=== PATIENT | female | born 2000 | race Hispanic/Latino ===

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

== ENCOUNTER 2022-03-24 18:56 | Emergency (ER) | payer SELFPAY ==
--- NOTE | 2022-03-24 19:04 | ED.EXTPRO ---
HPI - Extremity Problem General Chief complaint: Extremity Problem,Nontraumatic Stated complaint: left thumb/3rd finger infected Time Seen by Provider: 03/24/22 18:59 Source: patient Mode of arrival: ambulatory Limitations: no limitations History of Present Illness HPI Narrative: Ms. Jackson is a 21-year-old female patient presenting to the clinic today with complaints of possible for infections to the left thumb and left 3rd finger. She reports that over the last few days she developed soreness and swelling to the left 3rd finger and this has since gotten hearted current a callused however she does have a infection to the left lateral distal thumb. Has tried to cut out a an ingrown fingernail and now the area is red and swollen with yellow pus. Related Data Allergies Allergy/AdvReac Type Severity Reaction Status Date / Time No Known Allergies Allergy Unknown Verified 03/24/22 19:01 Review of Systems Review of Systems: Pertinent positives per HPI. Patient denies any fever, chills, rash, headache, visual changes, dizziness, cough, runny nose, sore throat, shortness of breath, chest pain, palpitations, nausea, vomiting, diarrhea, constipation, abdominal pain, or any urinary issues. PMFSH Past Medical History Medical History Chlamydia Von Willebrand disease Surgical History Surgical History No pertinent past surgical history Social History Social History Smoking status: Never smoker Alcohol intake: never Gender identity (if verbalized by the patient): Female Comments At the time of my signature, I reviewed and agree with the nursing past medical, surgical, social, and family history. There is no relevant family history pertinent to the patient complaint. Exam Narrative: General: Well-developed, well nourished, in no apparent distress Head: Normocephalic, atraumatic. Cardio: Regular rate and rhythm, s1 and s2 normal, no murmur appreciated. Resp: Clear to auscultation bilaterally, no rhonchi, rales, wheezing or rubs. Musculoskeletal: No deformity, Tender to palpation over the lateral distal left thumb, mild erythema and swelling noted to the left distal thumb was some yellow discharge, callus formation noted over the lateral left 3rd finger without redness, grossly normal range of motion, muscle strength strong and equal, peripheral pulse strong, no edema, no cyanosis, normal gait and station Course Course Emergency Course: Portions of this record may have been created with voice recognition software. Level of Care: Express Care Visit Vital Signs Vital signs: Vital Signs Temperature 37.2 C 03/24/22 19:05 Pulse Rate 74 03/24/22 19:05 Respiratory Rate 16 03/24/22 19:05 Blood Pressure 138/79 03/24/22 19:05 Pulse Oximetry 100 03/24/22 19:05 Oxygen Delivery Room Air 03/24/22 19:05 Temperature 37.2 C 03/24/22 19:05 Pulse Rate 74 03/24/22 19:05 Respiratory Rate 16 03/24/22 19:05 Blood Pressure 138/79 03/24/22 19:05 Pulse Oximetry 100 03/24/22 19:05 Oxygen Delivery Room Air 03/24/22 19:05 Vital signs reviewed MDM - Extremity (Nontraumatic) MDM Narrative Medical decision making narrative: at the time of visit patient resting comfortably on the exam table. I suspect patient has paronychia of left thumb. Supportive measures were discussed with the patient she voiced understanding of discharge instructions and agrees to treatment plan. Prescription for doxycycline and mupirocin cream sent to the pharmacy. Differential Diagnosis Differential diagnosis: Likely other ( Paronychia) Discharge Plan Discharge Clinical Impression: Paronychia Patient Disposition: Home, Self-Care Condition: Stable Instructions: Antibiotic Form, Paronychia (ED) Additional Instructions: Ap
[2022-03-24 19:05] VITALS: BP 138/79; PULSE 74; RESP 16; TEMP 37.2; O2SAT 100
== END 2022-03-24 19:16 | disposition home or self-care (01) ==
PROVIDERS: Emergency Provider Nurse Practitioner Family; PCP Registered Nurse
DX: L03.012 Cellulitis of left finger (principal)
CPT/HCPCS: 99213; G0463